=== PATIENT | male | born 1985 | race Two or more races ===

== ENCOUNTER 2024-02-23 08:43 | Emergency (ER) | payer SELFPAY ==
[2024-02-23] MEDS: cefTRIAXone 1 GM, Lidocaine 1% 2.1 ML IM ONE (09:49)
== END 2024-02-23 09:55 | disposition home or self-care (01) ==
LOC: JD.ED 08:43
DX: L23.9 Allergic contact dermatitis, unspecified cause (principal); L03.818 Cellulitis of other sites; Z79.899 Other long term (current) drug therapy
CPT/HCPCS: 96372; 99282; J0696; 99284; J3490